=== PATIENT | female | born 1960 | race Caucasian/White ===

== ENCOUNTER 2016-12-22 12:33 | Emergency (ER) | payer BC, OTHER ==
[~2016-12-22] VITALS: Ht 167.6 cm; Wt 64.1 kg
[2016-12-22] MEDS ORDERED: ASPIRIN 81 MG TABLET CHEW PO ONE (13:30)
[2016-12-22] MEDS ORDERED: ASPIRIN 81 MG TABLET CHEW ONE (13:38)
[2016-12-22 13:57] LABS: HEMOGLOBIN 13.9 g/dL (11.7-16.4)
[2016-12-22 14:08] LABS: BLOOD UREA NITROGEN 18 mg/dL (7-18)
[2016-12-22 14:14] LABS: IS PT STATUS REG ER OR PRE ER? YES
[2016-12-22 14:36] VITALS: BP 164/92
== END 2016-12-22 14:40 | disposition home or self-care (01) ==
LOC: ED 14:20
DX: R07.89 Other chest pain (principal); E78.00 Pure hypercholesterolemia, unspecified; Z88.1 Allergy status to other antibiotic agents; F17.210 Nicotine dependence, cigarettes, uncomplicated
CPT/HCPCS: 36415; 71010; 80048; 82040; 84484; 85025; 93005; 99285

== ENCOUNTER → 2017-07-01 | Outpatient (CLI) | payer BC | END | disposition home or self-care (01) | LOC: CFH 09:06 | PROVIDERS: ATTEND Internal Medicine | DX: R94.5 Abnormal results of liver function studies (principal) | CPT/HCPCS: 76700 ==

== ENCOUNTER → 2018-01-04 | Outpatient (CLI) | payer BC | END | disposition home or self-care (01) | LOC: CFH 10:01 | PROVIDERS: ATTEND Internal Medicine | DX: Z12.31 Encounter for screening mammogram for malignant neoplasm of breast (principal) | CPT/HCPCS: 77063; 77067 ==

== ENCOUNTER → 2019-01-06 | Outpatient (CLI) | payer OTHER | END | disposition home or self-care (01) | LOC: CFH 10:39 | PROVIDERS: ATTEND Internal Medicine | DX: Z12.31 Encounter for screening mammogram for malignant neoplasm of breast (principal); M85.88 Other specified disorders of bone density and structure, other site | CPT/HCPCS: 77080; 77067 ==